=== PATIENT | male | born 1950 | race Hispanic/Latino ===

== ENCOUNTER 2021-01-08 08:25 | Day surgery (SDC) | payer OTHER ==
[2021-01-03 10:09] LABS: BASOPHILS % (AUTO) 0.1 % (0.0-5.0); EOSINOPHILS % (AUTO) 2.3 % (0.0-8.0); HEMATOCRIT 39.1 % (42-54); LYMPHOCYTES % (AUTO) 23.4 % (21.0-51.0); MEAN CORPUSCULAR HEMOGLOBIN 29.9 pg (27.0-33.0); MEAN CORPUSCULAR VOLUME 90.5 fL (79-99); MONOCYTES % (AUTO) 7.4 % (3.0-13.0); NEUTROPHILS % (AUTO) 66.4 % (40.0-77.0); PLATELET COUNT (AUTO) 165 K/uL (130-400); RED BLOOD CELL COUNT(AUTO) 4.32 MIL/uL (4.50-6.20); RED CELL DISTRIBUTION WIDTH 13.1 % (11.0-15.5); WHITE BLOOD COUNT (AUTO) 7.3 K/uL (4.8-10.8)
[2021-01-03 10:17] LABS: CREATININE 0.9 mg/dL (0.5-1.5); POTASSIUM 4.9 mmol/L (3.5-5.1)
[2021-01-03 10:17] LABS: APPEARANCE,URINE CLEAR (CLEAR); BILIRUBIN,URINE NEGATIVE (NEGATIVE); COLOR,URINE YELLOW (YELLOW); GLUCOSE, URINE (UA) NEGATIVE (NEGATIVE); KETONES,URINE 5 mg/dL (NEGATIVE); LEUKOCYTE ESTERASE ,URINE NEGATIVE (NEGATIVE); NITRATE,URINE NEGATIVE (NEGATIVE); OCCULT BLOOD,URINE TRACE-INTACT (NEGATIVE); PROTEIN,URINE 100 mg/dL (NEGATIVE); UROBILINOGEN,URINE 0.2 mg/dL (0.2-1.0)
[2021-01-03 10:20] LABS: BACTERIA,URINE Many /HPF (None Seen)
[2021-01-03 10:22] LABS: INR 1.06 (0.85-1.15); PROTHROMBIN TIME 11.5 SEC (9.6-11.6)
[2021-01-03 10:23] LABS: PARTIAL THROMBOPLASTIN TIME 27.2 SEC (26.3-35.5)
[2021-01-07 09:12] VITALS: BP 119/62
[~2021-01-08] VITALS: Ht 182.9 cm; Wt 91.4 kg
[2021-01-08] VITALS (9 sets, daily range): BP systolic 137–174; BP diastolic 67–80
[~2021-01-08 08:25] MED LIST: ASPI-1197 PO; ISOS60TA77 PO; LISI20TA24 PO; METF-444 PO; METO-408 PO; NITR0.4T50 SL; ROSU20TA31 PO
[2021-01-08] MEDS ORDERED: 0.9%NACL 1000ML 1,000 ML IV ONE (09:18)
[2021-01-08] MEDS ORDERED: MIDAZOLAM HCL 1 MG/ML 2ML VIAL ONE (10:48)
[2021-01-08] MEDS ORDERED: FENTANYL CITRATE PF 50 MCG/1 ML 2ML VIAL ONE (10:48)
[2021-01-08] MEDS ORDERED: IOHEXOL 350 MG/ML 100ML INFUS..BTL IV ONE (11:00)
[2021-01-08] MEDS ORDERED: LIDOCAINE HCL 400MG/20ML VIAL ONE (11:01)
[2021-01-08] MEDS ORDERED: NITROGLYCERIN 2 MG VIAL IV ONE (11:04)
[2021-01-20] MEDS ORDERED: LISI-809 PO (11:26)
== END 2021-01-08 15:40 | disposition home or self-care (01) ==
LOC: DAH 08:25
PROVIDERS: ATTEND Internal Medicine Cardiovascular Disease
DX: R07.9 Chest pain, unspecified (principal); I10 Essential (primary) hypertension; E11.9 Type 2 diabetes mellitus without complications; E78.5 Hyperlipidemia, unspecified; Z90.49 Acquired absence of other specified parts of digestive tract; Z79.84 Long term (current) use of oral hypoglycemic drugs; Z79.82 Long term (current) use of aspirin; Z79.01 Long term (current) use of anticoagulants; Z79.899 Other long term (current) drug therapy
CPT/HCPCS: 36415; 71045; 80048; 81001; 82948 ×2; 85025; 85610; 85730; 87088; 93005; 93458; A6260; C1760; C1894 ×2; J1644; J2250; J3010; J3490 ×2; J7030; Q9965; Q9967; 99156; 99157

== ENCOUNTER 2021-01-11 14:45 | Inpatient (IN) | payer OTHER ==
[~2021-01-11] VITALS: Ht 182.9 cm; Wt 90.2 kg
[2021-01-11 13:49] VITALS: BP 136/62
[2021-01-11 14:14] LABS: BASOPHILS % (AUTO) 0.4 % (0.0-5.0); EOSINOPHILS % (AUTO) 2.1 % (0.0-8.0); HEMATOCRIT 39.8 % (42-54); LYMPHOCYTES % (AUTO) 37.1 % (21.0-51.0); MEAN CORPUSCULAR HEMOGLOBIN 29.6 pg (27.0-33.0); MEAN CORPUSCULAR HGB CONC 32.7 g/dL (32.0-36.0); MEAN CORPUSCULAR VOLUME 90.7 fL (79-99); MONOCYTES % (AUTO) 9.6 % (3.0-13.0); NEUTROPHILS % (AUTO) 50.4 % (40.0-77.0); PLATELET COUNT (AUTO) 184 K/uL (130-400); RED BLOOD CELL COUNT(AUTO) 4.39 MIL/uL (4.50-6.20); RED CELL DISTRIBUTION WIDTH 12.9 % (11.0-15.5); WHITE BLOOD COUNT (AUTO) 5.1 K/uL (4.8-10.8)
[2021-01-11 14:43] LABS: CREATININE 0.9 mg/dL (0.5-1.5); INR 1.05 (0.85-1.15); POTASSIUM 4.4 mmol/L (3.5-5.1); PROTHROMBIN TIME 11.4 SEC (9.6-11.6)
[2021-01-11 14:45] LABS: PARTIAL THROMBOPLASTIN TIME 27.8 SEC (26.3-35.5)
[2021-01-15] VITALS (20 sets, daily range): BP systolic 90–167; BP diastolic 49–80
[2021-01-15] MEDS ORDERED: AMINOCAPROIC ACID 5,000MG VIAL 15,000 MG in 0.9% NACL 500ML IV.SOLN 420 ML IV PRN (06:30)
[2021-01-15] MEDS ORDERED: EPINEPHRINE PF 1MG AMP 10 MG in 0.9% NACL 250ML 240 ML IV PRN ×2 (06:30→14:00)
[2021-01-15] MEDS ORDERED: NOREPINEPHRINE BITARTRATE 8 MG in 0.9% NACL 250ML 250 ML IV PRN ×2 (06:30→14:00)
[2021-01-15] MEDS ORDERED: NITROGLYCERIN 50MG/D5W 250ML 1 BOT ONE (06:42)
[2021-01-15] MEDS ORDERED: 0.9%NACL 1000ML 1,000 ML IV ONE ×2 (06:49→09:46)
[2021-01-15] MEDS: CEFAZOLIN SODIUM 1 GM VIAL ONE ×2 (06:51→08:05)
[2021-01-15] MEDS ORDERED: ESMOLOL HCL 10 MG/ML 10 ML VIAL ONE (08:00)
[2021-01-15] MEDS ORDERED: EPINEPHRINE PF 1MG AMP ONE (08:00)
[2021-01-15] MEDS ORDERED: LIDOCAINE PF 100MG/5ML (2%) SYRINGE 5ML ONE (08:00)
[2021-01-15] MEDS ORDERED: PROTAMINE SULFATE 10 MG/ML 25ML VIAL IV ONE (08:00)
[2021-01-15] MEDS ORDERED: HEPARIN 10,000 UNIT/10ML (1,000 UNIT/ML) VIAL ONE ×2 (08:00→08:17)
[2021-01-15] MEDS ORDERED: MIDAZOLAM HCL 1 MG/ML 2ML VIAL ONE (08:01)
[2021-01-15] MEDS ORDERED: PROPOFOL 10 MG/ML 20ML VIAL IV ONE (08:01)
[2021-01-15] MEDS ORDERED: NOREPINEPHRINE BITARTRATE 1 MG/1 ML ML IV ONE ×2 (08:01→08:15)
[2021-01-15] MEDS ORDERED: FENTANYL CITRATE PF 50 MCG/1 ML 20ML VIAL IJ ONE (08:01)
[2021-01-15] MEDS ORDERED: AMINOCAPROIC ACID 5,000MG VIAL ONE (08:01)
[2021-01-15] MEDS ORDERED: ROCURONIUM 10MG/1ML SYR 10 MG/ML ML ONE (08:01)
[2021-01-15] MEDS ORDERED: SODIUM BICARB 50MEQ 50ML VIAL 100 ML ONE (08:01)
[2021-01-15] MEDS ORDERED: KETAMINE 50MG/ML SYRINGE 50 MG/ML DISP.SYRIN IV ONE (08:03)
[2021-01-15] MEDS ORDERED: PAPAVERINE HCL 30 MG/ML 2ML VIAL ONE (08:17)
[2021-01-15] MEDS ORDERED: DELNIDO FORMULA 2 BAG IV ONE (08:21)
[2021-01-15] MEDS ORDERED: PROTAMINE SULFATE 10 MG/ML 5 ML VIAL ONE ×2 (10:43→11:06)
[2021-01-15] MEDS ORDERED: FENTANYL CITRATE PF 50 MCG/1 ML 2ML VIAL ONE ×2 (11:31)
[2021-01-15 12:00] LABS: ABG BASE EXCESS 0.1 mmol/L (-2.0-3.0); ABG HCO3 23.7 mmol/L (21.0-28.0); ABG OXYGEN SATURATION 97.4 % (95.0-99.0); ABG PCO2 35 mmHg (35-48)
[2021-01-15 12:02] LABS: ABG OXYGEN SATURATION 72.7 % (95.0-99.0); BASE EXCESS,VENOUS BLOOD GAS -0.5 (-2.0-3.0); HCO3,VENOUS BLOOD GAS 23.4 (21.0-28.0); PCO2,VENOUS BLOOD GAS 37 (35-48); PH,VENOUS BLOOD GAS 7.424 (7.350-7.450)
[2021-01-15] MEDS ORDERED: MORPHINE 4 MG SYG ONE (12:18)
[2021-01-15] MEDS ORDERED: NICARDIPINE HCL 100 MG/NS 100ML IV SCH ×2 (13:30)
[2021-01-15] MEDS ORDERED: POTASSIUM CHLORIDE 20MEQ/10ML 10 MEQ in 0.9%NACL 50ML 50 ML IV PRN (13:30)
[2021-01-15] MEDS ORDERED: NITROGLYCERIN 50 MG/D5% WATER 250 ML IV PRN (13:30)
[2021-01-15] MEDS ORDERED: POTASSIUM CHLORIDE 20MEQ/100ML 100 ML IV PRN (13:30)
[2021-01-15] MEDS ORDERED: SODIUM BICARB 8.4% 50ML SYRINGE IV PRN (13:30)
[2021-01-15] MEDS ORDERED: POTASSIUM PHOS 15 mMOL+NS250ML 250 ML IV PRN (13:30)
[2021-01-15] MEDS ORDERED: CALCIUM GLUC 1GM 1 GM in 0.9%NACL 50ML 50 ML IV PRN (13:30)
[2021-01-15] MEDS ORDERED: PROPOFOL 1000 MG/100 ML 100 ML IV PRN (13:30)
[2021-01-15 13:34] LABS: MEAN CORPUSCULAR HEMOGLOBIN 30.3 pg (27.0-33.0); MEAN CORPUSCULAR HGB CONC 34.1 g/dL (32.0-36.0); MEAN CORPUSCULAR VOLUME 88.9 fL (79-99); PLATELET COUNT (AUTO) 123 K/uL (130-400); RED CELL DISTRIBUTION WIDTH 12.8 % (11.0-15.5); WHITE BLOOD COUNT (AUTO) 10.2 K/uL (4.8-10.8)
[2021-01-15 13:49] LABS: INR 1.26 (0.85-1.15); PROTHROMBIN TIME 13.4 SEC (9.6-11.6)
[2021-01-15 13:52] LABS: CREATININE 0.9 mg/dL (0.5-1.5); MAGNESIUM 2.4 mg/dL (1.80-2.40); PHOSPHORUS 2.9 mg/dL (2.5-4.9); POTASSIUM 4.3 mmol/L (3.5-5.1)
[2021-01-15] MEDS: INSULIN REGULAR, HUMAN 3ML 100 UNIT in 0.9%NACL 100ML 99 ML IV SCH ×2 (13:58)
[2021-01-15] MEDS ORDERED: ONDANSETRON 4MG INJ IVP PRN (14:00)
[2021-01-15] MEDS ORDERED: ACETAMINOPHEN 650 MG SUPPOSITORY RC PRN (14:00)
[2021-01-15] MEDS ORDERED: 0.9%NACL 1000ML 1,000 ML IV SCH (14:00)
[2021-01-15] MEDS ORDERED: 0.9%NACL 10ML VIAL IVP PRN (14:00)
[2021-01-15] MEDS: 0.9%NACL 1000ML 1,000 ML IV SCH (14:00)
[2021-01-15] MEDS ORDERED: ACETAMINOPHEN 325 MG TAB PO PRN (14:00)
[2021-01-15] MEDS ORDERED: 0.9% NACL 500ML IV.SOLN 500 ML IV SCH (14:00)
[2021-01-15 14:10] LABS: EOSINOPHILS % (MANUAL) 1 % (1-6); LYMPHOCYTES % (MANUAL) 17 % (22-44); MAN.DIFF COMMENT-IMPRESSION MANUAL DIFFERENTIAL; MONOCYTES % (MANUAL) 6 % (2-9); PLATELET MORPHOLOGY COMMENT SLIGHTLY DECREASED; SEGMENTED NEUTROPHILS % 76 % (40-70)
[2021-01-15 14:18] LABS: ABG BASE EXCESS -4.3 mmol/L (-2.0-3.0); ABG HCO3 21.5 mmol/L (21.0-28.0); ABG OXYGEN SATURATION 98.4 % (95.0-99.0); ABG PCO2 42 mmHg (35-48)
[2021-01-15] MEDS: HYDROCODONE/ACETAMINOPHEN 5/325 MG TAB PO PRN (14:36)
[2021-01-15] MEDS: CEFUROXIME SODIUM 1.5 GM VIAL IVP SCH (14:40)
[2021-01-15 15:22] LABS: ABG BASE EXCESS -4.1 mmol/L (-2.0-3.0); ABG HCO3 21.8 mmol/L (21.0-28.0); ABG OXYGEN SATURATION 98.4 % (95.0-99.0); ABG PCO2 43 mmHg (35-48)
[2021-01-15] MEDS ORDERED: MANNITOL 25% 50ML VIAL IV ONE (15:45)
[2021-01-15] MEDS ORDERED: ALBUMIN (HUMAN) 25% 50 ML IV ONE (15:45)
[2021-01-15] MEDS ORDERED: HEPARIN 10,000 UNIT/10ML (1,000 UNIT/ML) VIAL IV ONE (15:45)
[2021-01-15] MEDS ORDERED: CACL 1GM SYG IVP ONE (15:45)
[2021-01-15] MEDS ORDERED: AMINOCAPROIC ACID 5,000MG VIAL IV ONE (15:45)
[2021-01-15] MEDS ORDERED: SODIUM BICARB 8.4% 50ML SYRINGE IVP ONE (15:45)
[2021-01-15 17:30] LABS: ABG BASE EXCESS -1.5 mmol/L (-2.0-3.0); ABG HCO3 24.6 mmol/L (21.0-28.0); ABG OXYGEN SATURATION 97.9 % (95.0-99.0); ABG PCO2 47 mmHg (35-48)
[2021-01-15] MEDS ORDERED: ASPIRIN 81MG CHEW TAB PO ONE (17:30)
[2021-01-15] MEDS: FAMOTIDINE 20MG VIAL IV SCH (21:06)
[2021-01-16] VITALS (27 sets, daily range): BP systolic 88–158; BP diastolic 50–79
[2021-01-16] MEDS: HYDROCODONE/ACETAMINOPHEN 5/325 MG TAB PO PRN ×3 (00:07→13:03)
[2021-01-16 00:15] LABS: POTASSIUM 4.4 mmol/L (3.5-5.1)
[2021-01-16 00:30] LABS: ABG BASE EXCESS -3.4 mmol/L (-2.0-3.0); ABG HCO3 20.2 mmol/L (21.0-28.0); ABG OXYGEN SATURATION 98.8 % (95.0-99.0); ABG PCO2 31 mmHg (35-48)
[2021-01-16 00:31] LABS: ABG BASE EXCESS -0.2 mmol/L (-2.0-3.0); ABG HCO3 23.8 mmol/L (21.0-28.0); ABG PCO2 37 mmHg (35-48)
[2021-01-16 00:31] LABS: ABG HCO3 23.9 mmol/L (21.0-28.0); ABG OXYGEN SATURATION 98.6 % (95.0-99.0); ABG PCO2 36 mmHg (35-48)
[2021-01-16 00:31] LABS: ABG BASE EXCESS -2.9 mmol/L (-2.0-3.0); ABG HCO3 21.9 mmol/L (21.0-28.0); ABG OXYGEN SATURATION 98.7 % (95.0-99.0); ABG PCO2 38 mmHg (35-48)
[2021-01-16] MEDS: CEFUROXIME SODIUM 1.5 GM VIAL IVP SCH ×2 (03:10→15:03)
[2021-01-16 04:46] LABS: BASOPHILS % (AUTO) 0.1 % (0.0-5.0); HEMATOCRIT 33.6 % (42-54); LYMPHOCYTES % (AUTO) 12.4 % (21.0-51.0); MEAN CORPUSCULAR HEMOGLOBIN 29.2 pg (27.0-33.0); MEAN CORPUSCULAR HGB CONC 32.4 g/dL (32.0-36.0); MEAN CORPUSCULAR VOLUME 90.1 fL (79-99); NEUTROPHILS % (AUTO) 80.1 % (40.0-77.0); PLATELET COUNT (AUTO) 141 K/uL (130-400); RED BLOOD CELL COUNT(AUTO) 3.73 MIL/uL (4.50-6.20); RED CELL DISTRIBUTION WIDTH 13.1 % (11.0-15.5); WHITE BLOOD COUNT (AUTO) 13.7 K/uL (4.8-10.8)
[2021-01-16 04:58] LABS: INR 1.18 (0.85-1.15); PROTHROMBIN TIME 12.7 SEC (9.6-11.6)
[2021-01-16 05:00] LABS: PARTIAL THROMBOPLASTIN TIME 30.8 SEC (26.3-35.5)
[2021-01-16 05:06] LABS: PHOSPHORUS 3.9 mg/dL (2.5-4.9); POTASSIUM 4.3 mmol/L (3.5-5.1)
[2021-01-16 05:08] LABS: ABG BASE EXCESS 0.5 mmol/L (-2.0-3.0); ABG HCO3 26.2 mmol/L (21.0-28.0); ABG OXYGEN SATURATION 97.8 % (95.0-99.0); ABG PCO2 46 mmHg (35-48)
[2021-01-16] MEDS: MORPHINE 2 MG SYG IVP PRN ×2 (07:39→22:27)
[2021-01-16] MEDS: ASPIRIN 81 MG EC TAB PO SCH (09:51)
[2021-01-16] MEDS: METOPROLOL TARTRATE 25 MG TAB PO SCH ×2 (09:51→20:24)
[2021-01-16] MEDS: ENOXAPARIN SODIUM 40 MG/0.4 ML SYRINGE SQ SCH (09:52)
[2021-01-16] MEDS: FAMOTIDINE 20MG VIAL IV SCH ×2 (09:52→20:24)
[2021-01-16] MEDS: MORPHINE 4 MG SYG IVP PRN ×2 (09:55→15:04)
[2021-01-16] MEDS: 0.9%NACL 1000ML 1,000 ML IV SCH (14:00)
[2021-01-16] MEDS: INSULIN REGULAR, HUMAN 3ML 100 UNIT in 0.9%NACL 100ML 99 ML IV SCH ×2 (21:56)
[2021-01-17] VITALS (22 sets, daily range): BP systolic 109–178; BP diastolic 52–77
[2021-01-17] MEDS: HYDROCODONE/ACETAMINOPHEN 5/325 MG TAB PO PRN ×4 (02:15→20:56)
[2021-01-17] MEDS: MORPHINE 2 MG SYG IVP PRN (06:22)
[2021-01-17 07:42] LABS: BASOPHILS % (AUTO) 0.2 % (0.0-5.0); EOSINOPHILS % (AUTO) 0.1 % (0.0-8.0); HEMATOCRIT 34.5 % (42-54); LYMPHOCYTES % (AUTO) 11.9 % (21.0-51.0); MEAN CORPUSCULAR HEMOGLOBIN 29.6 pg (27.0-33.0); MEAN CORPUSCULAR VOLUME 89.6 fL (79-99); MONOCYTES % (AUTO) 7.7 % (3.0-13.0); NEUTROPHILS % (AUTO) 79.4 % (40.0-77.0); PLATELET COUNT (AUTO) 139 K/uL (130-400); RED BLOOD CELL COUNT(AUTO) 3.85 MIL/uL (4.50-6.20); RED CELL DISTRIBUTION WIDTH 13.2 % (11.0-15.5); WHITE BLOOD COUNT (AUTO) 17.8 K/uL (4.8-10.8)
[2021-01-17 07:51] LABS: CREATININE 1.1 mg/dL (0.5-1.5); MAGNESIUM 1.9 mg/dL (1.80-2.40); POTASSIUM 4.4 mmol/L (3.5-5.1)
[2021-01-17] MEDS: MAGNESIUM 2GM PREMIX IV PRN (08:33)
[2021-01-17] MEDS: ASPIRIN 81 MG EC TAB PO SCH (09:15)
[2021-01-17] MEDS: ENOXAPARIN SODIUM 40 MG/0.4 ML SYRINGE SQ SCH (09:16)
[2021-01-17] MEDS: METOPROLOL TARTRATE 25 MG TAB PO SCH ×2 (09:16→20:52)
[2021-01-17] MEDS: FAMOTIDINE 20MG VIAL IV SCH (09:16)
[2021-01-17] MEDS ORDERED: LISINOPRIL 5 MG TABLET PO SCH (12:00)
[2021-01-17] MEDS: LISINOPRIL 5 MG TABLET PO SCH (13:07)
[2021-01-17] MEDS: INSULIN HUMULIN R 100 UNIT/ML 3ML SQ SCH ×2 (16:30→20:53)
[2021-01-17] MEDS: 0.9%NACL 1000ML 1,000 ML IV SCH (20:17)
[2021-01-17] MEDS ORDERED: FAMOTIDINE 20MG TAB ONE (20:38)
[2021-01-17] MEDS: ATORVASTATIN 40 MG TABLET PO SCH (20:52)
[2021-01-17] MEDS: FAMOTIDINE 20MG TAB PO SCH (20:53)
[2021-01-17] MEDS: FUROSEMIDE 20MG VIAL IV SCH (21:02)
[2021-01-18] VITALS (8 sets, daily range): BP systolic 101–153; BP diastolic 61–81
[2021-01-18] MEDS: HYDROCODONE/ACETAMINOPHEN 5/325 MG TAB PO PRN ×3 (01:39→21:32)
[2021-01-18 04:03] LABS: BASOPHILS % (AUTO) 0.2 % (0.0-5.0); EOSINOPHILS % (AUTO) 0.7 % (0.0-8.0); HEMATOCRIT 29.4 % (42-54); LYMPHOCYTES % (AUTO) 15.9 % (21.0-51.0); MEAN CORPUSCULAR HEMOGLOBIN 29.9 pg (27.0-33.0); MEAN CORPUSCULAR HGB CONC 33.3 g/dL (32.0-36.0); MEAN CORPUSCULAR VOLUME 89.6 fL (79-99); MONOCYTES % (AUTO) 7.4 % (3.0-13.0); NEUTROPHILS % (AUTO) 75.3 % (40.0-77.0); PLATELET COUNT (AUTO) 129 K/uL (130-400); RED BLOOD CELL COUNT(AUTO) 3.28 MIL/uL (4.50-6.20); RED CELL DISTRIBUTION WIDTH 13.2 % (11.0-15.5); WHITE BLOOD COUNT (AUTO) 10.2 K/uL (4.8-10.8)
[2021-01-18 04:20] LABS: PHOSPHORUS 2.4 mg/dL (2.5-4.9); POTASSIUM 4.3 mmol/L (3.5-5.1)
[2021-01-18] MEDS: INSULIN HUMULIN R 100 UNIT/ML 3ML SQ SCH ×4 (07:30→20:22)
[2021-01-18] MEDS: FAMOTIDINE 20MG TAB PO SCH ×2 (09:26→20:24)
[2021-01-18] MEDS: ASPIRIN 81 MG EC TAB PO SCH (09:26)
[2021-01-18] MEDS: METOPROLOL TARTRATE 25 MG TAB PO SCH ×2 (09:26→20:23)
[2021-01-18] MEDS: METFORMIN HCL 500 MG TABLET PO SCH (09:28)
[2021-01-18] MEDS: ENOXAPARIN SODIUM 40 MG/0.4 ML SYRINGE SQ SCH (09:29)
[2021-01-18] MEDS: FUROSEMIDE 20MG VIAL IV SCH ×2 (09:29→17:20)
[2021-01-18] MEDS: LISINOPRIL 5 MG TABLET PO SCH (09:29)
[2021-01-18] MEDS: 0.9%NACL 1000ML 1,000 ML IV SCH (17:19)
[2021-01-18] MEDS: ATORVASTATIN 40 MG TABLET PO SCH (20:23)
[2021-01-19 04:00] VITALS: BP 140/68
[2021-01-19 06:33] LABS: BASOPHILS % (AUTO) 0.4 % (0.0-5.0); EOSINOPHILS % (AUTO) 3.4 % (0.0-8.0); HEMATOCRIT 31.4 % (42-54); LYMPHOCYTES % (AUTO) 29.9 % (21.0-51.0); MEAN CORPUSCULAR HEMOGLOBIN 29.5 pg (27.0-33.0); MEAN CORPUSCULAR HGB CONC 32.8 g/dL (32.0-36.0); MONOCYTES % (AUTO) 9.6 % (3.0-13.0); NEUTROPHILS % (AUTO) 56.3 % (40.0-77.0); PLATELET COUNT (AUTO) 164 K/uL (130-400); RED BLOOD CELL COUNT(AUTO) 3.49 MIL/uL (4.50-6.20); WHITE BLOOD COUNT (AUTO) 7.3 K/uL (4.8-10.8)
[2021-01-19] MEDS: INSULIN HUMULIN R 100 UNIT/ML 3ML SQ SCH ×4 (06:42→21:00)
[2021-01-19 06:46] LABS: CREATININE 0.9 mg/dL (0.5-1.5); MAGNESIUM 1.9 mg/dL (1.80-2.40); POTASSIUM 3.3 mmol/L (3.5-5.1)
[2021-01-19 07:47] VITALS: BP 145/72
[2021-01-19] MEDS ORDERED: TRAMADOL HCL 50 MG TABLET PO SCH (08:30)
[2021-01-19] MEDS: MAGNESIUM 2GM PREMIX IV PRN (08:37)
[2021-01-19] MEDS: FAMOTIDINE 20MG TAB PO SCH ×2 (08:38→19:54)
[2021-01-19] MEDS: METFORMIN HCL 500 MG TABLET PO SCH (08:38)
[2021-01-19] MEDS: ASPIRIN 81 MG EC TAB PO SCH (08:38)
[2021-01-19] MEDS: METOPROLOL TARTRATE 25 MG TAB PO SCH ×2 (08:38→19:53)
[2021-01-19] MEDS: FUROSEMIDE 20MG VIAL IV SCH (08:38)
[2021-01-19] MEDS: LISINOPRIL 5 MG TABLET PO SCH (08:39)
[2021-01-19] MEDS: KCL 20 MEQ ERTAB PO SCH ×2 (08:39→19:52)
[2021-01-19] MEDS: ENOXAPARIN SODIUM 40 MG/0.4 ML SYRINGE SQ SCH (08:41)
[2021-01-19 11:58] VITALS: BP 127/74
[2021-01-19 16:24] VITALS: BP 115/61
[2021-01-19] MEDS: TRAMADOL HCL 50 MG TABLET PO PRN (19:54)
[2021-01-19] MEDS: ATORVASTATIN 40 MG TABLET PO SCH (19:54)
[2021-01-19 20:25] VITALS: BP 139/78
[2021-01-19 23:53] VITALS: BP 108/57
[2021-01-20] MEDS ORDERED: ZOLPIDEM TARTRATE 5 MG TAB PO ONE
[2021-01-20 03:57] VITALS: BP 111/64
[2021-01-20] MEDS ORDERED: HYDROCODONE/ACETAMINOPHEN 5/325 MG TAB ONE (05:40)
[2021-01-20] MEDS: INSULIN HUMULIN R 100 UNIT/ML 3ML SQ SCH ×3 (05:55→16:22)
[2021-01-20] MEDS ORDERED: HYDROCODONE/ACETAMINOPHEN 5/325 MG TAB PO ONE (06:00)
[2021-01-20 06:41] LABS: BASOPHILS % (AUTO) 0.3 % (0.0-5.0); EOSINOPHILS % (AUTO) 4.4 % (0.0-8.0); LYMPHOCYTES % (AUTO) 23.7 % (21.0-51.0); MEAN CORPUSCULAR HEMOGLOBIN 30.1 pg (27.0-33.0); MEAN CORPUSCULAR HGB CONC 33.5 g/dL (32.0-36.0); MEAN CORPUSCULAR VOLUME 89.9 fL (79-99); MONOCYTES % (AUTO) 10.3 % (3.0-13.0); NEUTROPHILS % (AUTO) 60.8 % (40.0-77.0); PLATELET COUNT (AUTO) 192 K/uL (130-400); RED BLOOD CELL COUNT(AUTO) 3.45 MIL/uL (4.50-6.20); RED CELL DISTRIBUTION WIDTH 12.9 % (11.0-15.5); WHITE BLOOD COUNT (AUTO) 5.7 K/uL (4.8-10.8)
[2021-01-20 06:51] LABS: POTASSIUM 4.1 mmol/L (3.5-5.1)
[2021-01-20] MEDS ORDERED: MAGNESIUM CITRATE 296 ML SOLUTION PO SCH (07:30)
[2021-01-20 08:00] VITALS: BP 104/61
[2021-01-20] MEDS ORDERED: DOCUSATE SODIUM 100 MG CAP PO SCH (09:00)
[2021-01-20] MEDS: ASPIRIN 81 MG EC TAB PO SCH (09:02)
[2021-01-20] MEDS: METFORMIN HCL 500 MG TABLET PO SCH (09:02)
[2021-01-20] MEDS: FAMOTIDINE 20MG TAB PO SCH (09:03)
[2021-01-20] MEDS: METOPROLOL TARTRATE 25 MG TAB PO SCH (09:03)
[2021-01-20] MEDS: KCL 20 MEQ ERTAB PO SCH (09:03)
[2021-01-20] MEDS: LISINOPRIL 5 MG TABLET PO SCH (09:03)
[2021-01-20] MEDS: ENOXAPARIN SODIUM 40 MG/0.4 ML SYRINGE SQ SCH (09:05)
[2021-01-20] MEDS ORDERED: LISI5TAB21 PO (11:26)
[2021-01-20] MEDS ORDERED: POTA10CA44 PO (11:26)
[2021-01-20] MEDS ORDERED: FURO20TA4 PO (11:26)
[2021-01-20 11:44] VITALS: BP 135/75
[2021-01-20] MEDS: TRAMADOL HCL 50 MG TABLET PO PRN (13:40)
[2021-01-20 16:00] VITALS: BP 136/69
== END 2021-01-20 17:52 | disposition home or self-care (01) | DRG 235 ==
LOC: EDSTATUS 01-14 14:45 → DAHIP 01-15 06:10 → 2CV 01-15 10:50 → 2CH 01-16 05:12 → 2DH 01-18 03:50 → 4DH 01-18 10:58
PROVIDERS: ADMIT Thoracic Surgery (Cardiothoracic Vascular Surgery); ATTEND Thoracic Surgery (Cardiothoracic Vascular Surgery)
PROC: 5A1221Z Performance of Cardiac Output, Continuous (ICD-10-PCS; 2021-01-15)
PROC: 03HY32Z Insertion of Monitoring Device into Upper Artery, Percutaneous Approach (ICD-10-PCS; 2021-01-15)
PROC: 02100Z9 Bypass Coronary Artery, One Artery from Left Internal Mammary, Open Approach (ICD-10-PCS; principal; 2021-01-15 07:30)
PROC: 021109W Bypass Coronary Artery, Two Arteries from Aorta with Autologous Venous Tissue, Open Approach (ICD-10-PCS; 2021-01-15 07:30)
PROC: 06BP4ZZ Excision of Right Saphenous Vein, Percutaneous Endoscopic Approach (ICD-10-PCS; 2021-01-15 07:30)
DX: I25.10 Atherosclerotic heart disease of native coronary artery without angina pectoris (principal); I50.43 Acute on chronic combined systolic (congestive) and diastolic (congestive) heart failure; I47.2 Ventricular tachycardia; E11.9 Type 2 diabetes mellitus without complications; E78.5 Hyperlipidemia, unspecified; Z20.822 Contact with and (suspected) exposure to COVID-19; Z80.3 Family history of malignant neoplasm of breast; Z87.01 Personal history of pneumonia (recurrent); Z83.3 Family history of diabetes mellitus; Z82.49 Family history of ischemic heart disease and other diseases of the circulatory system; Z83.438 Family history of other disorder of lipoprotein metabolism and other lipidemia; Z86.16 Personal history of COVID-19; I11.0 Hypertensive heart disease with heart failure
CPT/HCPCS: 36415; 36600; 71045; 80048; 82435; 82803; 82947; 82948; 83605; 83735; 84100; 84132; 84295; 85018; 85025; 85347; 85610; 85730; 86850; 86900; 86901; 86923; 87635; 93306; 93356; 93880; 94002; 94150; 97039; A7048; C1729; C1757; G0378; J0171; J0690; J0697; J1644; J1650; J1815; J1940; J2001; J2150; J2250; J2270; J2405; J2440; J2704; J2720; J3010; J3475; J3480; J3490; J7030; J7040; P9047